=== PATIENT | female | born 1965 | race African-American/Black ===

== ENCOUNTER 2019-01-09 23:09 | Inpatient (IN) | payer OTHER ==
[~2019-01-09] VITALS: Ht 172.7 cm; Wt 136.3 kg
[2019-01-09] MEDS ORDERED: IPRA4AER IH (23:40)
[2019-01-09] MEDS ORDERED: TRUVT PO (23:41)
[2019-01-09] MEDS ORDERED: LISI-662 PO (23:41)
[2019-01-09] MEDS ORDERED: FAMO20 PO (23:41)
[2019-01-09] MEDS ORDERED: HYDR25TA PO (23:41)
[2019-01-09] MEDS ORDERED: ATAZ150 PO (23:41)
[2019-01-09] MEDS ORDERED: GABA-531 PO (23:41)
[2019-01-09] MEDS ORDERED: RITO100T PO (23:41)
[2019-01-09] MEDS ORDERED: GUAIF600 PO (23:41)
[2019-01-09] MEDS ORDERED: LORA0.5T2 PO (23:41)
[2019-01-10] MEDS ORDERED: KETOROLAC TROMETHAMINE 30 MG/ML VIAL IVP ONE
[2019-01-10 00:29] LABS: BASOPHILS % (AUTO) 0.8 % (0.0-2.0); EOSINOPHILS % (AUTO) 1.3 % (1.0-6.0); HEMATOCRIT 23.8 % (36-46); HEMOGLOBIN 7.7 g/dL (12.0-16.0); LYMPHOCYTES # (AUTO) 1.7 K/uL (1.0-4.8); MEAN CORPUSCULAR HEMOGLOBIN 27.8 pg (26.0-34.0); MEAN CORPUSCULAR HGB CONC 32.2 G/dL (31.0-37.0); MEAN CORPUSCULAR VOLUME 86 fL (80-100); MONOCYTES # (AUTO) 0.5 K/uL (0.1-1.0); MONOCYTES % (AUTO) 10.3 % (2.0-9.0); NEUTROPHILS # (AUTO) 2.4 K/uL (1.8-7.7); NEUTROPHILS % (AUTO) 50.6 % (40.0-70.0); PLATELET COUNT (AUTO) 121 K/uL (150-450); RED BLOOD CELL COUNT(AUTO) 2.76 MIL/uL (4.00-5.20); RED CELL DISTRIBUTION WIDTH 18.9 % (11.5-14.5)
[2019-01-10 00:39] LABS: CALCIUM, TOTAL 7.7 mg/dL (8.8-10.5); CREATININE 1.56 mg/dL (0.60-1.30); POTASSIUM 4.3 mmol/L (3.5-5.1)
[2019-01-10 00:40] LABS: INR 1.4 (0.9-1.1); PROTHROMBIN TIME 14.1 SEC (9.4-11.6)
[2019-01-10 01:04] LABS: ALBUMIN 1.1 g/dL (3.4-5.0); BILIRUBIN,TOTAL 1.4 mg/dL (0.1-1.0); TOTAL PROTEIN, SERUM 9.1 g/dL (6.4-8.2)
[2019-01-10] MEDS ORDERED: LEVOFLOXACIN 750 MG/D5% WATER 150 ML IV ONE (01:30)
[2019-01-10 01:31] LABS: APPEARANCE,URINE CLEAR (CLEAR); BILIRUBIN,URINE NEGATIVE (NEGATIVE); GLUCOSE, URINE (UA) NEGATIVE (NEGATIVE); KETONES,URINE NEGATIVE (NEGATIVE); LEUKOCYTE ESTERASE ,URINE NEGATIVE (NEGATIVE); NITRATE,URINE NEGATIVE (NEGATIVE); OCCULT BLOOD,URINE LARGE (NEGATIVE); PROTEIN,URINE NEGATIVE (NEGATIVE); UROBILINOGEN,URINE 0.2 mg/dL (<=1.0)
[2019-01-10 01:46] LABS: BACTERIA,URINE Rare /HPF (None Seen); SQUAMOUS EPITHELIAL CELL,UR Few /LPF (None Seen); WBC,URINE 0-2 /HPF (0-5)
[2019-01-10] MEDS ORDERED: HYDROCODONE/ACETAMINOPHEN 5-325 MG TABLET PO ONE (03:45)
[2019-01-10] MEDS ORDERED: MethylPREDNISolone SOD SUCC 125 MG/2 ML VIAL IVP ONE (03:45)
[2019-01-10] MEDS ORDERED: FUROSEMIDE 40 MG/4 ML VIAL IVP ONE (05:00)
[2019-01-10 07:02] VITALS: BP 153/97
[2019-01-10 08:11] VITALS: BP 145/71
[2019-01-10 12:23] VITALS: BP 142/60
[2019-01-10] MEDS ORDERED: ONDANSETRON HCL 4 MG/2 ML VIAL IVP PRN (12:30)
[2019-01-10] MEDS ORDERED: IPRATROPIUM BROMIDE 0.5 MG/2.5 ML NEB SOLUTION NEB PRN (12:30)
[2019-01-10] MEDS ORDERED: ALBUTEROL SULFATE 2.5 MG/0.5 ML NEB SOLUTION NEB PRN (12:30)
[2019-01-10] MEDS ORDERED: *CLINICAL-LEVOFLOXACIN IVPB DOSING CLINICAL ONE (12:30)
[2019-01-10] MEDS ORDERED: 0.9% SODIUM CHLORIDE 10 ML SYRINGE IVP PRN (12:30)
[2019-01-10] MEDS ORDERED: SODIUM CHLORIDE 0.9% 250 ML IV ONE (12:46)
[2019-01-10] MEDS: HYDROCHLOROTHIAZIDE 25 MG TABLET PO SCH (13:58)
[2019-01-10] MEDS: LEVOFLOXACIN 750 MG/D5% WATER 150 ML IV SCH (13:58)
[2019-01-10] MEDS: LORazepam 0.5 MG TABLET PO SCH ×2 (13:59→20:29)
[2019-01-10] MEDS: LISINOPRIL 20 MG TABLET PO SCH ×2 (13:59→20:29)
[2019-01-10] MEDS: GuaiFENesin SR 600 MG ER TABLET PO SCH (14:02)
[2019-01-10] MEDS: HEPARIN SODIUM,PORCINE 5,000 UNITS/ML VIAL SQ SCH (14:02)
[2019-01-10] MEDS: ALBUTEROL SULFATE 2.5 MG/0.5 ML NEB SOLUTION NEB SCH ×2 (14:08→20:07)
[2019-01-10] MEDS: IPRATROPIUM BROMIDE 0.5 MG/2.5 ML NEB SOLUTION NEB SCH ×2 (14:08→20:07)
[2019-01-10 15:39] VITALS: BP 138/70
[2019-01-10] MEDS: RITONAVIR 100 MG TABLET PO SCH (17:49)
[2019-01-10 19:18] VITALS: BP 134/73
[2019-01-10] MEDS ORDERED: [UNRECOGNIZED DRUG - CODE] PO (19:44)
[2019-01-10] MEDS: ZOLPIDEM TARTRATE 5 MG TABLET PO PRN (20:29)
[2019-01-10] MEDS: MethylPREDNISolone SOD SUCC 40 MG/ML VIAL IVP SCH (20:29)
[2019-01-10] MEDS: ACETAMINOPHEN 325 MG TABLET PO PRN (20:29)
[2019-01-10] MEDS: DOCUSATE SODIUM 100 MG CAPSULE PO SCH (20:29)
[2019-01-10 23:58] VITALS: BP 151/77
[2019-01-11] MEDS: HEPARIN SODIUM,PORCINE 5,000 UNITS/ML VIAL SQ SCH ×4 (00:56→23:18)
[2019-01-11] MEDS: GuaiFENesin SR 600 MG ER TABLET PO SCH ×4 (00:56→23:18)
[2019-01-11] MEDS: ALBUTEROL SULFATE 2.5 MG/0.5 ML NEB SOLUTION NEB SCH ×4 (02:16→19:14)
[2019-01-11] MEDS: IPRATROPIUM BROMIDE 0.5 MG/2.5 ML NEB SOLUTION NEB SCH ×4 (02:16→19:14)
[2019-01-11 04:09] VITALS: BP 130/59
[2019-01-11 05:56] LABS: BASOPHILS % (AUTO) 0.3 % (0.0-2.0); EOSINOPHILS % (AUTO) 0 % (1.0-6.0); HEMATOCRIT 23.5 % (36-46); HEMOGLOBIN 7.6 g/dL (12.0-16.0); LYMPHOCYTES # (AUTO) 0.6 K/uL (1.0-4.8); LYMPHOCYTES % (AUTO) 13.7 % (22.0-44.0); MEAN CORPUSCULAR HEMOGLOBIN 28.1 pg (26.0-34.0); MEAN CORPUSCULAR HGB CONC 32.2 G/dL (31.0-37.0); MEAN CORPUSCULAR VOLUME 87 fL (80-100); MONOCYTES # (AUTO) 0.2 K/uL (0.1-1.0); MONOCYTES % (AUTO) 4.1 % (2.0-9.0); NEUTROPHILS # (AUTO) 3.5 K/uL (1.8-7.7); NEUTROPHILS % (AUTO) 81.9 % (40.0-70.0); PLATELET COUNT (AUTO) 102 K/uL (150-450); RED BLOOD CELL COUNT(AUTO) 2.69 MIL/uL (4.00-5.20)
[2019-01-11 06:30] LABS: ANION GAP 6 mmol/L (8-16); CALCIUM, TOTAL 7.7 mg/dL (8.8-10.5); CARBON DIOXIDE 22 mmol/L (22-29); CHLORIDE 102 mmol/L (98-107); CREATININE 1.74 mg/dL (0.60-1.30); GLOMERULAR FILTR. RATE CALC 37 mL/min (>60); GLUCOSE,RANDOM 209 mg/dL (70-110); POTASSIUM 5.3 mmol/L (3.5-5.1); SODIUM SERUM 130 mmol/L (136-145); UREA NITROGEN, BLOOD 28 mg/dL (7-18)
[2019-01-11 07:09] LABS: INFLUENZA TYPE A NEGATIVE FOR TYPE A (NEGATIVE); INFLUENZA TYPE B NEGATIVE FOR TYPE B (NEGATIVE)
[2019-01-11 07:43] VITALS: BP 140/64
[2019-01-11] MEDS ORDERED: PANTOPRAZOLE SODIUM 40 MG/VIAL IVP SCH (09:00)
[2019-01-11] MEDS: MethylPREDNISolone SOD SUCC 40 MG/ML VIAL IVP SCH ×2 (09:07→20:37)
[2019-01-11] MEDS: RITONAVIR 100 MG TABLET PO SCH ×2 (09:07→17:47)
[2019-01-11] MEDS: LISINOPRIL 20 MG TABLET PO SCH ×2 (09:08→20:37)
[2019-01-11] MEDS: GABAPENTIN 300 MG CAPSULE PO SCH (09:08)
[2019-01-11] MEDS: DOCUSATE SODIUM 100 MG CAPSULE PO SCH ×2 (09:09→20:37)
[2019-01-11] MEDS: LORazepam 0.5 MG TABLET PO SCH ×2 (09:09→20:37)
[2019-01-11] MEDS: HYDROCHLOROTHIAZIDE 25 MG TABLET PO SCH (09:09)
[2019-01-11] MEDS: EMTRICITABINE/TENOFOVIR 200-300 MG TABLET PO SCH (09:10)
[2019-01-11 11:18] VITALS: BP 131/52
[2019-01-11] MEDS: ATAZANAVIR SULFATE 300 MG CAPSULE PO SCH (13:27)
[2019-01-11] MEDS ORDERED: DEXTROSE 50%-WATER 25 GM/50 ML SYRINGE IVP PRN (14:00)
[2019-01-11] MEDS ORDERED: MAGNESIUM SULFATE 2 GM/WATER 50 ML IV PRN (14:00)
[2019-01-11] MEDS ORDERED: GLUCAGON,HUMAN RECOMBINANT 1 MG VIAL IM PRN (14:00)
[2019-01-11] MEDS ORDERED: MAGNESIUM SULFATE 4 GM/WATER 100 ML IV PRN (14:00)
[2019-01-11] MEDS ORDERED: INSULIN LISPRO 100 UNITS/ML SQ PRN (14:00)
[2019-01-11 15:22] VITALS: BP 143/73
[2019-01-11] MEDS: LEVOFLOXACIN 750 MG/D5% WATER 150 ML IV SCH (15:31)
[2019-01-11] MEDS: INSULIN LISPRO 100 UNITS/ML SQ PRN ×2 (17:51→20:41)
[2019-01-11 19:58] VITALS: BP 133/75
[2019-01-11] MEDS: ACETAMINOPHEN 325 MG TABLET PO PRN (20:37)
[2019-01-11] MEDS: ZOLPIDEM TARTRATE 5 MG TABLET PO PRN (20:37)
[2019-01-12 00:07] VITALS: BP 131/75
[2019-01-12] MEDS: ALBUTEROL SULFATE 2.5 MG/0.5 ML NEB SOLUTION NEB SCH ×3 (01:20→14:00)
[2019-01-12] MEDS: IPRATROPIUM BROMIDE 0.5 MG/2.5 ML NEB SOLUTION NEB SCH ×3 (01:20→14:00)
[2019-01-12 04:33] VITALS: BP 146/63
[2019-01-12 05:10] LABS: GLUCOMETER DEV NAME(LOC) 5N.1; GLUCOSE,POINT OF CARE 232 MG/DL (70-110)
[2019-01-12 06:30] LABS: GLUCOMETER DEV NAME(LOC) 5S.1; GLUCOSE,POINT OF CARE 260 MG/DL (70-110)
[2019-01-12 06:39] LABS: CALCIUM, TOTAL 7.7 mg/dL (8.8-10.5); CREATININE 1.55 mg/dL (0.60-1.30); MAGNESIUM 1.7 mg/dL (1.80-2.40); POTASSIUM 5.4 mmol/L (3.5-5.1)
[2019-01-12] MEDS: INSULIN LISPRO 100 UNITS/ML SQ PRN ×4 (06:41→22:11)
[2019-01-12 06:43] LABS: BASOPHILS % (AUTO) 0.4 % (0.0-2.0); EOSINOPHILS % (AUTO) 0.2 % (1.0-6.0); HEMATOCRIT 22.2 % (36-46); HEMOGLOBIN 7.2 g/dL (12.0-16.0); LYMPHOCYTES # (AUTO) 0.6 K/uL (1.0-4.8); LYMPHOCYTES % (AUTO) 9.2 % (22.0-44.0); MEAN CORPUSCULAR HEMOGLOBIN 27.7 pg (26.0-34.0); MEAN CORPUSCULAR HGB CONC 32.4 G/dL (31.0-37.0); MEAN CORPUSCULAR VOLUME 86 fL (80-100); MONOCYTES # (AUTO) 0.4 K/uL (0.1-1.0); MONOCYTES % (AUTO) 7.1 % (2.0-9.0); NEUTROPHILS # (AUTO) 5.2 K/uL (1.8-7.7); NEUTROPHILS % (AUTO) 83.1 % (40.0-70.0); PLATELET COUNT (AUTO) 115 K/uL (150-450); RED CELL DISTRIBUTION WIDTH 18.9 % (11.5-14.5)
[2019-01-12 07:48] VITALS: BP 136/72
[2019-01-12] MEDS: LISINOPRIL 20 MG TABLET PO SCH ×2 (08:44→20:01)
[2019-01-12] MEDS: GABAPENTIN 300 MG CAPSULE PO SCH (08:44)
[2019-01-12] MEDS: RITONAVIR 100 MG TABLET PO SCH ×2 (08:44→17:38)
[2019-01-12] MEDS: LORazepam 0.5 MG TABLET PO SCH ×2 (08:44→20:01)
[2019-01-12] MEDS: EMTRICITABINE/TENOFOVIR 200-300 MG TABLET PO SCH (08:44)
[2019-01-12] MEDS: HYDROCHLOROTHIAZIDE 25 MG TABLET PO SCH (08:44)
[2019-01-12] MEDS: GuaiFENesin SR 600 MG ER TABLET PO SCH ×4 (08:44→23:35)
[2019-01-12] MEDS: ATAZANAVIR SULFATE 300 MG CAPSULE PO SCH (08:45)
[2019-01-12] MEDS: MethylPREDNISolone SOD SUCC 40 MG/ML VIAL IVP SCH ×2 (08:45→20:00)
[2019-01-12] MEDS: HEPARIN SODIUM,PORCINE 5,000 UNITS/ML VIAL SQ SCH ×3 (08:45→23:35)
[2019-01-12] MEDS: DOCUSATE SODIUM 100 MG CAPSULE PO SCH ×2 (08:46→20:01)
[2019-01-12] MEDS: MAGNESIUM OXIDE 400 MG TABLET PO PRN ×3 (09:04→23:32)
[2019-01-12 11:36] VITALS: BP 120/72
[2019-01-12] MEDS ORDERED: SODIUM POLYSTYRENE SULFONATE 15 GM/60 ML SUSPENSION BOTTLE PO ONE (12:00)
[2019-01-12] MEDS: SODIUM CHLORIDE 1 GM TABLET PO SCH ×2 (12:16→20:01)
[2019-01-12 13:24] LABS: GLUCOMETER DEV NAME(LOC) 5N.1; GLUCOSE,POINT OF CARE 254 MG/DL (70-110)
[2019-01-12 13:24] LABS: GLUCOMETER DEV NAME(LOC) 5N.1; GLUCOSE,POINT OF CARE 210 MG/DL (70-110)
[2019-01-12 15:33] VITALS: BP 129/73
[2019-01-12] MEDS: LEVOFLOXACIN 750 MG/D5% WATER 150 ML IV SCH (15:36)
[2019-01-12] MEDS ORDERED: OxyCODONE HCL/ACETAMINOPHEN 5-325 MG TABLET PO ONE (17:00)
[2019-01-12 19:43] VITALS: BP 128/69
[2019-01-13 00:38] VITALS: BP 141/68
[2019-01-13 00:41] LABS: GLUCOMETER DEV NAME(LOC) 5N.1; GLUCOSE,POINT OF CARE 336 MG/DL (70-110)
[2019-01-13] MEDS: ALBUTEROL SULFATE 2.5 MG/0.5 ML NEB SOLUTION NEB SCH ×4 (01:53→19:37)
[2019-01-13] MEDS: IPRATROPIUM BROMIDE 0.5 MG/2.5 ML NEB SOLUTION NEB SCH ×4 (01:53→19:37)
[2019-01-13 05:33] VITALS: BP 137/83
[2019-01-13] MEDS: INSULIN LISPRO 100 UNITS/ML SQ PRN ×4 (05:41→20:30)
[2019-01-13 05:54] LABS: GLUCOMETER DEV NAME(LOC) 5S.1; GLUCOSE,POINT OF CARE 352 MG/DL (70-110)
[2019-01-13 05:55] LABS: GLUCOMETER DEV NAME(LOC) 5S.1; GLUCOSE,POINT OF CARE 336 MG/DL (70-110)
[2019-01-13 06:00] LABS: HEMATOCRIT 23.9 % (36-46); HEMOGLOBIN 7.8 g/dL (12.0-16.0); MEAN CORPUSCULAR HEMOGLOBIN 28.3 pg (26.0-34.0); MEAN CORPUSCULAR HGB CONC 32.8 G/dL (31.0-37.0); MEAN CORPUSCULAR VOLUME 86 fL (80-100); PLATELET COUNT (AUTO) 125 K/uL (150-450); RED BLOOD CELL COUNT(AUTO) 2.77 MIL/uL (4.00-5.20); RED CELL DISTRIBUTION WIDTH 18.2 % (11.5-14.5)
[2019-01-13 06:38] LABS: CALCIUM, TOTAL 7.7 mg/dL (8.8-10.5); CREATININE 1.49 mg/dL (0.60-1.30); MAGNESIUM 1.6 mg/dL (1.80-2.40); POTASSIUM 5.2 mmol/L (3.5-5.1)
[2019-01-13 07:21] VITALS: BP 153/81
[2019-01-13 07:46] LABS: BAND NEUTROPHILS % (MANUAL) 1 % (0-5); LYMPHOCYTES % (MANUAL) 25 % (22-44); MONOCYTES % (MANUAL) 3 % (2-9); SEGMENTED NEUTROPHILS % 71 % (40-70)
[2019-01-13] MEDS: HYDROCHLOROTHIAZIDE 25 MG TABLET PO SCH (08:24)
[2019-01-13] MEDS: RITONAVIR 100 MG TABLET PO SCH ×2 (08:24→16:33)
[2019-01-13] MEDS: LORazepam 0.5 MG TABLET PO SCH ×2 (08:24→20:22)
[2019-01-13] MEDS: GuaiFENesin SR 600 MG ER TABLET PO SCH ×3 (08:24→23:21)
[2019-01-13] MEDS: EMTRICITABINE/TENOFOVIR 200-300 MG TABLET PO SCH (08:25)
[2019-01-13] MEDS: GABAPENTIN 300 MG CAPSULE PO SCH (08:25)
[2019-01-13] MEDS: SODIUM CHLORIDE 1 GM TABLET PO SCH ×3 (08:25→20:21)
[2019-01-13] MEDS: LISINOPRIL 20 MG TABLET PO SCH ×2 (08:25→20:22)
[2019-01-13] MEDS: DOCUSATE SODIUM 100 MG CAPSULE PO SCH ×2 (08:25→20:22)
[2019-01-13] MEDS: MethylPREDNISolone SOD SUCC 40 MG/ML VIAL IVP SCH ×2 (08:25→20:21)
[2019-01-13] MEDS: HEPARIN SODIUM,PORCINE 5,000 UNITS/ML VIAL SQ SCH ×3 (08:25→23:21)
[2019-01-13] MEDS: ATAZANAVIR SULFATE 300 MG CAPSULE PO SCH (08:27)
[2019-01-13 11:59] VITALS: BP 147/89
[2019-01-13] MEDS ORDERED: DEXTROSE 50%-WATER 25 GM/50 ML SYRINGE IVP PRN (12:30)
[2019-01-13 15:18] VITALS: BP 126/72
[2019-01-13] MEDS: LEVOFLOXACIN 750 MG/D5% WATER 150 ML IV SCH (16:42)
[2019-01-13 17:20] LABS: GLUCOMETER DEV NAME(LOC) 5S.1; GLUCOSE,POINT OF CARE 366 MG/DL (70-110)
[2019-01-13] MEDS ORDERED: LORazepam 2 MG/ML VIAL IVP ONE (18:45)
[2019-01-13 19:24] LABS: GLUCOMETER DEV NAME(LOC) 5N.1; GLUCOSE,POINT OF CARE 342 MG/DL (70-110)
[2019-01-13 19:28] VITALS: BP 140/81
[2019-01-13 22:14] LABS: GLUCOMETER DEV NAME(LOC) 5S.1; GLUCOSE,POINT OF CARE 329 MG/DL (70-110)
[2019-01-14] VITALS (7 sets, daily range): BP systolic 127–148; BP diastolic 62–93
[2019-01-14] MEDS: IPRATROPIUM BROMIDE 0.5 MG/2.5 ML NEB SOLUTION NEB SCH ×4 (02:00→21:05)
[2019-01-14] MEDS: ALBUTEROL SULFATE 2.5 MG/0.5 ML NEB SOLUTION NEB SCH ×4 (02:00→21:05)
[2019-01-14 06:34] LABS: BASOPHILS % (AUTO) 0.3 % (0.0-2.0); EOSINOPHILS % (AUTO) 0 % (1.0-6.0); HEMATOCRIT 24.2 % (36-46); HEMOGLOBIN 7.8 g/dL (12.0-16.0); LYMPHOCYTES # (AUTO) 0.4 K/uL (1.0-4.8); LYMPHOCYTES % (AUTO) 7.6 % (22.0-44.0); MEAN CORPUSCULAR HEMOGLOBIN 28.2 pg (26.0-34.0); MEAN CORPUSCULAR HGB CONC 32.4 G/dL (31.0-37.0); MEAN CORPUSCULAR VOLUME 87 fL (80-100); MONOCYTES # (AUTO) 0.6 K/uL (0.1-1.0); MONOCYTES % (AUTO) 11.3 % (2.0-9.0); NEUTROPHILS % (AUTO) 80.8 % (40.0-70.0); PLATELET COUNT (AUTO) 119 K/uL (150-450); RED BLOOD CELL COUNT(AUTO) 2.78 MIL/uL (4.00-5.20); RED CELL DISTRIBUTION WIDTH 18.1 % (11.5-14.5)
[2019-01-14 06:55] LABS: CALCIUM, TOTAL 7.9 mg/dL (8.8-10.5); CREATININE 1.49 mg/dL (0.60-1.30); MAGNESIUM 1.5 mg/dL (1.80-2.40); PHOSPHORUS 3.6 mg/dL (2.5-4.9); POTASSIUM 5.2 mmol/L (3.5-5.1)
[2019-01-14] MEDS: INSULIN LISPRO 100 UNITS/ML SQ PRN ×3 (06:59→20:45)
[2019-01-14] MEDS ORDERED: MAGNESIUM SULFATE 2 GM in DEXTROSE 5%-WATER 50 ML IV ONE (08:00)
[2019-01-14] MEDS: EMTRICITABINE/TENOFOVIR 200-300 MG TABLET PO SCH (08:45)
[2019-01-14] MEDS: RITONAVIR 100 MG TABLET PO SCH ×2 (08:45→17:07)
[2019-01-14] MEDS: LORazepam 0.5 MG TABLET PO SCH ×2 (08:46→20:43)
[2019-01-14] MEDS: HYDROCHLOROTHIAZIDE 25 MG TABLET PO SCH (08:46)
[2019-01-14] MEDS: DOCUSATE SODIUM 100 MG CAPSULE PO SCH ×2 (08:46→20:43)
[2019-01-14] MEDS: HEPARIN SODIUM,PORCINE 5,000 UNITS/ML VIAL SQ SCH ×3 (08:46→23:59)
[2019-01-14] MEDS: GuaiFENesin SR 600 MG ER TABLET PO SCH ×2 (08:46→17:07)
[2019-01-14] MEDS: GABAPENTIN 300 MG CAPSULE PO SCH (08:46)
[2019-01-14] MEDS: LISINOPRIL 20 MG TABLET PO SCH ×2 (08:46→20:43)
[2019-01-14] MEDS: SODIUM CHLORIDE 1 GM TABLET PO SCH ×3 (08:46→20:43)
[2019-01-14] MEDS: ATAZANAVIR SULFATE 300 MG CAPSULE PO SCH (08:47)
[2019-01-14] MEDS: MethylPREDNISolone SOD SUCC 40 MG/ML VIAL IVP SCH (08:47)
[2019-01-14] MEDS ORDERED: LORazepam 2 MG/ML VIAL IVP ONE (10:45)
[2019-01-14] MEDS ORDERED: INSULIN LISPRO 100 UNITS/ML SQ ONE ×2 (11:15)
[2019-01-14] MEDS: LEVOFLOXACIN 750 MG/D5% WATER 150 ML IV SCH (17:07)
[2019-01-14] MEDS: ZOLPIDEM TARTRATE 5 MG TABLET PO PRN (20:43)
[2019-01-14] MEDS: ACETAMINOPHEN 325 MG TABLET PO PRN (20:44)
[2019-01-15 00:10] VITALS: BP 140/84
[2019-01-15] MEDS: ALBUTEROL SULFATE 2.5 MG/0.5 ML NEB SOLUTION NEB SCH ×2 (02:28→15:09)
[2019-01-15] MEDS: IPRATROPIUM BROMIDE 0.5 MG/2.5 ML NEB SOLUTION NEB SCH ×2 (02:28→15:09)
[2019-01-15 04:55] VITALS: BP 151/72
[2019-01-15 06:24] LABS: GLUCOMETER DEV NAME(LOC) 5S.2; GLUCOSE,POINT OF CARE 317 MG/DL (70-110)
[2019-01-15 06:25] LABS: GLUCOMETER DEV NAME(LOC) 5S.2; GLUCOSE,POINT OF CARE > 600 MG/DL (70-110)
[2019-01-15 06:25] LABS: GLUCOMETER DEV NAME(LOC) 5S.2; GLUCOSE,POINT OF CARE 370 MG/DL (70-110)
[2019-01-15 06:25] LABS: GLUCOMETER DEV NAME(LOC) 5S.2; GLUCOSE,POINT OF CARE 417 MG/DL (70-110)
[2019-01-15 06:27] LABS: HEMATOCRIT 25.2 % (36-46); HEMOGLOBIN 8.1 g/dL (12.0-16.0); MEAN CORPUSCULAR VOLUME 88 fL (80-100); PLATELET COUNT (AUTO) 127 K/uL (150-450); RED BLOOD CELL COUNT(AUTO) 2.88 MIL/uL (4.00-5.20); RED CELL DISTRIBUTION WIDTH 18.1 % (11.5-14.5)
[2019-01-15] MEDS: INSULIN LISPRO 100 UNITS/ML SQ PRN ×2 (06:39→11:52)
[2019-01-15 07:21] LABS: CREATININE 1.51 mg/dL (0.60-1.30); MAGNESIUM 1.8 mg/dL (1.80-2.40); POTASSIUM 5.1 mmol/L (3.5-5.1); THYROID STIMULATING HORMONE 2.09 uIU/mL (0.36-3.74)
[2019-01-15 07:33] VITALS: BP 136/71
[2019-01-15] MEDS: EMTRICITABINE/TENOFOVIR 200-300 MG TABLET PO SCH (08:34)
[2019-01-15] MEDS: RITONAVIR 100 MG TABLET PO SCH (08:34)
[2019-01-15] MEDS: GABAPENTIN 300 MG CAPSULE PO SCH (08:35)
[2019-01-15] MEDS: LORazepam 0.5 MG TABLET PO SCH (08:35)
[2019-01-15] MEDS: HYDROCHLOROTHIAZIDE 25 MG TABLET PO SCH (08:35)
[2019-01-15] MEDS: GuaiFENesin SR 600 MG ER TABLET PO SCH ×2 (08:35)
[2019-01-15] MEDS: SODIUM CHLORIDE 1 GM TABLET PO SCH (08:35)
[2019-01-15] MEDS: LISINOPRIL 20 MG TABLET PO SCH (08:35)
[2019-01-15] MEDS: DOCUSATE SODIUM 100 MG CAPSULE PO SCH (08:35)
[2019-01-15] MEDS: HEPARIN SODIUM,PORCINE 5,000 UNITS/ML VIAL SQ SCH (08:36)
[2019-01-15] MEDS: ATAZANAVIR SULFATE 300 MG CAPSULE PO SCH (08:36)
[2019-01-15 08:41] LABS: BAND NEUTROPHILS % (MANUAL) 1 % (0-5); LYMPHOCYTES % (MANUAL) 25 % (22-44); MONOCYTES % (MANUAL) 6 % (2-9); SEGMENTED NEUTROPHILS % 68 % (40-70)
[2019-01-15 08:58] VITALS: BP 139/74
[2019-01-15] MEDS ORDERED: PredniSONE 20 MG TABLET PO SCH (09:00)
[2019-01-15] MEDS ORDERED: INSULIN GLARGINE,HUM.REC.ANLOG 100 UNITS/ML SQ SCH (09:00)
[2019-01-15 11:51] VITALS: BP 138/70
[2019-01-15] MEDS ORDERED: SODIUM CHLORIDE 1 GM TABLET PO SCH (15:00)
[2019-01-15 15:57] VITALS: BP 146/82
[2019-01-15] MEDS ORDERED: INSLAN SQ (17:10)
[2019-01-15] MEDS ORDERED: IPRNEB IH (17:11)
[2019-01-15] MEDS ORDERED: LORA-192 PO (17:12)
[2019-01-15] MEDS ORDERED: NACL1 PO (17:13)
[2019-01-15] MEDS ORDERED: MetFORMIN HCL 500 MG TABLET PO SCH (18:00)
[2019-01-15 21:10] LABS: GLUCOMETER DEV NAME(LOC) 5N.1; GLUCOSE,POINT OF CARE 308 MG/DL (70-110)
[2019-01-16 04:49] LABS: GLUCOMETER DEV NAME(LOC) 5S.1; GLUCOSE,POINT OF CARE 455 MG/DL (70-110)
[2019-01-16 11:07] LABS: LEGIONELLA PNEUMO AG URINE Negative (Negative); ORGANISM ID Not indicated.; S PNEUMO SOURCE Urine; STREP PNEUMONIAE AG URINE Negative (Negative); STREP.PNEUMO BODY FLUID CULT. Not Indicated
[2019-01-17] MEDS ORDERED: EMTRICITABINE/TENOFOVIR 200-300 MG TABLET PO SCH (09:00)
== END 2019-01-15 17:20 | DRG 890 ==
LOC: EMS 23:10 → 5S 01-10 05:04
PROVIDERS: ADMIT Internal Medicine; ATTEND Internal Medicine
DX: J18.9 Pneumonia, unspecified organism (principal); B20 Human immunodeficiency virus [HIV] disease; N17.9 Acute kidney failure, unspecified; K74.60 Unspecified cirrhosis of liver; I11.0 Hypertensive heart disease with heart failure; I50.9 Heart failure, unspecified; E83.42 Hypomagnesemia; E87.1 Hypo-osmolality and hyponatremia; R16.0 Hepatomegaly, not elsewhere classified; J44.9 Chronic obstructive pulmonary disease, unspecified; D64.9 Anemia, unspecified; B19.20 Unspecified viral hepatitis C without hepatic coma; E87.5 Hyperkalemia; F15.10 Other stimulant abuse, uncomplicated; F17.210 Nicotine dependence, cigarettes, uncomplicated; J45.909 Unspecified asthma, uncomplicated; R09.02 Hypoxemia; Z59.0 Homelessness; Z79.899 Other long term (current) drug therapy; Z82.49 Family history of ischemic heart disease and other diseases of the circulatory system; Z91.19 Patient's noncompliance with other medical treatment and regimen; Z88.8 Allergy status to other drugs, medicaments and biological substances
CPT/HCPCS: 51702; 71250; 74181; 80074; 82105; 82533; 83036; 83605; 83735; 83935; 84100; 84145; 84300; 84443; 86361; 86738; 87040; 87081; 87205; 87449; 87804; 87899; 93005; 93306; 94640; 96365; 96375; 97116; 97162; 97530; G0378; J1644; J1815; J1885; J1940; J1956; J2060; J2405; J2920; J2930; J3475; J7050; J7060

== ENCOUNTER 2019-01-18 02:34 | Inpatient (IN) | payer OTHER ==
[~2019-01-18] VITALS: Ht 172.7 cm; Wt 133.0 kg
[~2019-01-18 02:34] MED LIST: FAMO20 PO; GABA-531 PO; GUAIF600 PO; HYDR25TA PO; INSLAN SQ; IPRA4AER IH; IPRNEB IH; LISI-662 PO; LORA-192 PO; LORA0.5T2 PO; NACL1 PO; RITO100T PO; TRUVT PO; [UNRECOGNIZED DRUG - CODE] PO
[2019-01-18] MEDS ORDERED: VITAD1000 PO (03:06)
[2019-01-18] MEDS ORDERED: PRED20 PO (03:06)
[2019-01-18 03:39] LABS: GLUCOSE,POINT OF CARE 228 MG/DL (70-110)
[2019-01-18 03:43] LABS: HEMATOCRIT 28.3 % (36-46); HEMOGLOBIN 9.4 g/dL (12.0-16.0); MEAN CORPUSCULAR HEMOGLOBIN 28.9 pg (26.0-34.0); MEAN CORPUSCULAR HGB CONC 33.1 G/dL (31.0-37.0); MEAN CORPUSCULAR VOLUME 88 fL (80-100); PLATELET COUNT (AUTO) 129 K/uL (150-450); RED BLOOD CELL COUNT(AUTO) 3.24 MIL/uL (4.00-5.20); RED CELL DISTRIBUTION WIDTH 18.4 % (11.5-14.5)
[2019-01-18 03:44] LABS: CALCIUM, TOTAL 8.1 mg/dL (8.8-10.5); CREATININE 1.43 mg/dL (0.60-1.30); INR 1.3 (0.9-1.1); POTASSIUM 4.8 mmol/L (3.5-5.1); PROTHROMBIN TIME 13.1 SEC (9.4-11.6)
[2019-01-18 04:05] LABS: ALBUMIN 1.4 g/dL (3.4-5.0); BILIRUBIN,TOTAL 1.9 mg/dL (0.1-1.0); TOTAL PROTEIN, SERUM 8.1 g/dL (6.4-8.2)
[2019-01-18 04:07] LABS: APPEARANCE,URINE CLEAR (CLEAR); BILIRUBIN,URINE NEGATIVE (NEGATIVE); GLUCOSE, URINE (UA) NEGATIVE (NEGATIVE); KETONES,URINE NEGATIVE (NEGATIVE); LEUKOCYTE ESTERASE ,URINE SMALL (NEGATIVE); NITRATE,URINE NEGATIVE (NEGATIVE); OCCULT BLOOD,URINE LARGE (NEGATIVE); PH,URINE 6.5 (5.0-8.0); PROTEIN,URINE POS 1+ (NEGATIVE)
[2019-01-18 04:15] LABS: BAND NEUTROPHILS % (MANUAL) 3 % (0-5); EOSINOPHILS % (MANUAL) 1 % (1-6); LYMPHOCYTES % (MANUAL) 10 % (22-44); MONOCYTES % (MANUAL) 10 % (2-9); SEGMENTED NEUTROPHILS % 76 % (40-70)
[2019-01-18 04:21] LABS: RBC,URINE >100 /HPF (0-2)
[2019-01-18 04:23] LABS: BACTERIA,URINE Rare /HPF (None Seen); SQUAMOUS EPITHELIAL CELL,UR Rare /LPF (None Seen)
[2019-01-18] MEDS ORDERED: SODIUM CHLORIDE 0.9% 100 ML ONE (04:31)
[2019-01-18] MEDS ORDERED: IOVERSOL 350 MG/ML 150 ML VIAL ONE (04:31)
[2019-01-18] MEDS ORDERED: ACETAMINOPHEN 325 MG TABLET PO PRN (05:15)
[2019-01-18] MEDS ORDERED: ONDANSETRON HCL 4 MG/2 ML VIAL IVP PRN ×2 (05:15→06:00)
[2019-01-18] MEDS ORDERED: 0.9% SODIUM CHLORIDE 10 ML SYRINGE IVP PRN ×2 (05:15→06:00)
[2019-01-18] MEDS ORDERED: INSULIN LISPRO 100 UNITS/ML SQ PRN (06:00)
[2019-01-18] MEDS ORDERED: GLUCAGON,HUMAN RECOMBINANT 1 MG VIAL IM PRN (06:00)
[2019-01-18] MEDS ORDERED: DEXTROSE 50%-WATER 25 GM/50 ML SYG IVP PRN (06:15)
[2019-01-18 06:21] VITALS: BP 150/87
[2019-01-18 07:39] VITALS: BP 116/59
[2019-01-18] MEDS: ALBUTEROL SULFATE 2.5 MG/0.5 ML NEB SOLUTION NEB SCH ×3 (08:31→20:28)
[2019-01-18] MEDS: IPRATROPIUM BROMIDE 0.5 MG/2.5 ML NEB SOLUTION NEB SCH ×3 (08:31→20:28)
[2019-01-18] MEDS: INSULIN GLARGINE,HUM.REC.ANLOG 100 UNITS/ML SQ SCH ×2 (08:53→20:24)
[2019-01-18] MEDS: PANTOPRAZOLE SODIUM 40 MG/VIAL IVP SCH (08:55)
[2019-01-18] MEDS: LORazepam 0.5 MG TABLET PO SCH ×2 (08:55→20:20)
[2019-01-18] MEDS: MethylPREDNISolone SOD SUCC 125 MG/2 ML VIAL IVP SCH ×2 (08:55→20:20)
[2019-01-18] MEDS: SODIUM CHLORIDE 1 GM TABLET PO SCH ×2 (08:56→20:20)
[2019-01-18] MEDS: DOCUSATE SODIUM 100 MG CAPSULE PO SCH ×2 (08:56→20:20)
[2019-01-18] MEDS: HEPARIN SODIUM,PORCINE 5,000 UNITS/ML VIAL SQ SCH ×3 (08:56→23:40)
[2019-01-18] MEDS: LISINOPRIL 20 MG TABLET PO SCH ×2 (08:57→20:20)
[2019-01-18] MEDS: CHOLECALCIFEROL (VIT D3) 1,000 UNITS TABLET PO SCH (08:57)
[2019-01-18] MEDS: RITONAVIR 100 MG TABLET PO SCH ×2 (08:57→17:45)
[2019-01-18] MEDS: EMTRICITABINE/TENOFOVIR 200-300 MG TABLET PO SCH (08:58)
[2019-01-18] MEDS: ATAZANAVIR SULFATE 300 MG CAPSULE PO SCH (08:58)
[2019-01-18] MEDS ORDERED: LORazepam 1 MG TABLET PO SCH (09:00)
[2019-01-18] MEDS ORDERED: PredniSONE 20 MG TABLET PO SCH (09:00)
[2019-01-18] MEDS: GABAPENTIN 300 MG CAPSULE PO SCH (09:02)
[2019-01-18 09:19] LABS: GLUCOMETER DEV NAME(LOC) 5S.1; GLUCOSE,POINT OF CARE 216 MG/DL (70-110)
[2019-01-18 11:03] VITALS: BP 121/60
[2019-01-18] MEDS: INSULIN LISPRO 100 UNITS/ML SQ PRN ×3 (11:48→20:25)
[2019-01-18] MEDS ORDERED: RACEPINEPHRINE HCL 2.25% 0.5 ML NEB SOLUTION NEB ONE (14:15)
[2019-01-18 15:36] VITALS: BP 157/95
[2019-01-18] MEDS ORDERED: SODIUM CHLORIDE 0.9% 250 ML IV ONE (16:09)
[2019-01-18] MEDS: MetroNIDAZOLE 500 MG TABLET PO SCH ×2 (16:14→23:39)
[2019-01-18] MEDS: CefTRIAXone SODIUM 2 GM in DEXTROSE 5%-WATER 50 ML IV SCH (16:14)
[2019-01-18 16:18] LABS: SOURCE, BLOOD GAS ARTERIAL; TEMPERATURE, FAHRENHEIT, BG 98.6 FAHREN (96.0-98.6)
[2019-01-18 16:24] LABS: ABG BASE EXCESS 1.2 mmol/L (-2.0-3.0); ABG CARBOXYHEMOGLOBIN 1.4 % (0.0-1.5); ABG HCO3 25.8 mmol/L (22.0-26.0); ABG METHEMOGLOBIN 0.3 % (0.0-1.5); ABG OXYGEN CONTENT 13.6 mL/dL (15.0-23.0); ABG OXYGEN SATURATION 99.2 % (95.0-98.0); ABG OXYHEMOGLOBIN 97.5 % (94.0-100.0); ABG PCO2 33 mmHg (35-45); ABG PH 7.488 (7.35-7.450); ABG TOTAL HEMOGLOBIN 9.7 G/dL (12.0-18.0); PO2, ARTERIAL BG 131.5 mmHg (84.0-92.0)
[2019-01-18 16:25] LABS: O2 DEVICE,BLOOD GAS CAN (ROOM AIR); SITE, BLOOD GAS RT RADIAL
[2019-01-18] MEDS: AZITHROMYCIN 500 MG/NS 250 ML IV SCH (17:08)
[2019-01-18 19:38] VITALS: BP 154/76
[2019-01-19 00:29] VITALS: BP 138/62
[2019-01-19] MEDS: ALBUTEROL SULFATE 2.5 MG/0.5 ML NEB SOLUTION NEB SCH ×4 (02:00→20:00)
[2019-01-19] MEDS: IPRATROPIUM BROMIDE 0.5 MG/2.5 ML NEB SOLUTION NEB SCH ×4 (02:00→20:00)
[2019-01-19 05:26] VITALS: BP 158/80
[2019-01-19] MEDS: HEPARIN SODIUM,PORCINE 5,000 UNITS/ML VIAL SQ SCH ×3 (08:00→16:00)
[2019-01-19 08:02] VITALS: BP 186/89
[2019-01-19] MEDS: LISINOPRIL 20 MG TABLET PO SCH ×2 (08:31→21:31)
[2019-01-19] MEDS: PANTOPRAZOLE SODIUM 40 MG/VIAL IVP SCH (08:31)
[2019-01-19] MEDS: MethylPREDNISolone SOD SUCC 125 MG/2 ML VIAL IVP SCH ×2 (08:31→21:00)
[2019-01-19 08:55] LABS: GLUCOMETER DEV NAME(LOC) 5S.1; GLUCOSE,POINT OF CARE 326 MG/DL (70-110)
[2019-01-19 11:26] VITALS: BP 154/81
[2019-01-19 11:30] LABS: GLUCOMETER DEV NAME(LOC) 5S.2; GLUCOSE,POINT OF CARE 348 MG/DL (70-110)
[2019-01-19 11:30] LABS: GLUCOMETER DEV NAME(LOC) 5S.2; GLUCOSE,POINT OF CARE 343 MG/DL (70-110)
[2019-01-19] MEDS: DOCUSATE SODIUM 100 MG CAPSULE PO SCH ×2 (11:38→21:31)
[2019-01-19] MEDS: SODIUM CHLORIDE 1 GM TABLET PO SCH ×2 (11:38→21:31)
[2019-01-19] MEDS: LORazepam 0.5 MG TABLET PO SCH ×2 (11:39→21:31)
[2019-01-19] MEDS: CHOLECALCIFEROL (VIT D3) 1,000 UNITS TABLET PO SCH (11:39)
[2019-01-19] MEDS: RITONAVIR 100 MG TABLET PO SCH ×2 (11:39→17:02)
[2019-01-19] MEDS: MetroNIDAZOLE 500 MG TABLET PO SCH ×2 (11:39→17:02)
[2019-01-19] MEDS: GABAPENTIN 300 MG CAPSULE PO SCH (11:39)
[2019-01-19] MEDS: ATAZANAVIR SULFATE 300 MG CAPSULE PO SCH (11:40)
[2019-01-19] MEDS: EMTRICITABINE/TENOFOVIR 200-300 MG TABLET PO SCH (11:41)
[2019-01-19] MEDS: INSULIN GLARGINE,HUM.REC.ANLOG 100 UNITS/ML SQ SCH ×2 (11:42→21:36)
[2019-01-19 14:49] LABS: GLUCOMETER DEV NAME(LOC) 5N.1; GLUCOSE,POINT OF CARE 273 MG/DL (70-110)
[2019-01-19 14:54] LABS: GLUCOMETER DEV NAME(LOC) 5N.1; GLUCOSE,POINT OF CARE 281 MG/DL (70-110)
[2019-01-19 15:46] VITALS: BP 128/62
[2019-01-19] MEDS: CefTRIAXone SODIUM 2 GM in DEXTROSE 5%-WATER 50 ML IV SCH (17:02)
[2019-01-19] MEDS: AZITHROMYCIN 500 MG/NS 250 ML IV SCH (18:08)
[2019-01-19 18:25] LABS: GLUCOMETER DEV NAME(LOC) 5N.1; GLUCOSE,POINT OF CARE 418 MG/DL (70-110)
[2019-01-19 20:39] VITALS: BP 157/59
[2019-01-19] MEDS ORDERED: INSULIN LISPRO 100 UNITS/ML SQ ONE (21:30)
[2019-01-19] MEDS ORDERED: DEXTROSE 50%-WATER 25 GM/50 ML SYRINGE IVP PRN (21:30)
[2019-01-20] MEDS: MetroNIDAZOLE 500 MG TABLET PO SCH ×3 (00:53→15:50)
[2019-01-20] MEDS: ALBUTEROL SULFATE 2.5 MG/0.5 ML NEB SOLUTION NEB SCH ×4 (02:00→19:53)
[2019-01-20] MEDS: IPRATROPIUM BROMIDE 0.5 MG/2.5 ML NEB SOLUTION NEB SCH ×4 (02:00→19:52)
[2019-01-20] MEDS: ALBUTEROL SULFATE 2.5 MG/0.5 ML NEB SOLUTION NEB PRN (03:59)
[2019-01-20] MEDS: IPRATROPIUM BROMIDE 0.5 MG/2.5 ML NEB SOLUTION NEB PRN (03:59)
[2019-01-20 04:02] VITALS: BP 152/84
[2019-01-20] MEDS: INSULIN LISPRO 100 UNITS/ML SQ PRN ×4 (05:44→20:15)
[2019-01-20 06:20] LABS: ALBUMIN 1.3 g/dL (3.4-5.0); BILIRUBIN,TOTAL 1.5 mg/dL (0.1-1.0); CALCIUM, TOTAL 8.1 mg/dL (8.8-10.5); CREATININE 1.32 mg/dL (0.60-1.30); POTASSIUM 5.3 mmol/L (3.5-5.1); TOTAL PROTEIN, SERUM 7.4 g/dL (6.4-8.2)
[2019-01-20 06:58] LABS: HEMATOCRIT 26.1 % (36-46); HEMOGLOBIN 8.3 g/dL (12.0-16.0); MEAN CORPUSCULAR HEMOGLOBIN 28.4 pg (26.0-34.0); MEAN CORPUSCULAR HGB CONC 31.9 G/dL (31.0-37.0); MEAN CORPUSCULAR VOLUME 89 fL (80-100); RED BLOOD CELL COUNT(AUTO) 2.94 MIL/uL (4.00-5.20); RED CELL DISTRIBUTION WIDTH 18.5 % (11.5-14.5)
[2019-01-20 06:59] LABS: PLATELET COUNT (AUTO) 96 K/uL (150-450)
[2019-01-20 07:45] LABS: GLUCOMETER DEV NAME(LOC) 5S.2; GLUCOSE,POINT OF CARE 397 MG/DL (70-110)
[2019-01-20 08:15] VITALS: BP 143/90
[2019-01-20 08:20] LABS: BAND NEUTROPHILS % (MANUAL) 2 % (0-5); LYMPHOCYTES % (MANUAL) 11 % (22-44); MONOCYTES % (MANUAL) 12 % (2-9); SEGMENTED NEUTROPHILS % 75 % (40-70)
[2019-01-20] MEDS: LISINOPRIL 20 MG TABLET PO SCH ×2 (09:19→20:13)
[2019-01-20] MEDS: PANTOPRAZOLE SODIUM 40 MG/VIAL IVP SCH (09:19)
[2019-01-20] MEDS: GABAPENTIN 300 MG CAPSULE PO SCH (09:19)
[2019-01-20] MEDS: CHOLECALCIFEROL (VIT D3) 1,000 UNITS TABLET PO SCH (09:19)
[2019-01-20] MEDS: MethylPREDNISolone SOD SUCC 125 MG/2 ML VIAL IVP SCH (09:19)
[2019-01-20] MEDS: DOCUSATE SODIUM 100 MG CAPSULE PO SCH ×2 (09:19→20:13)
[2019-01-20] MEDS: LORazepam 0.5 MG TABLET PO SCH ×2 (09:20→20:13)
[2019-01-20] MEDS: AmLODIPine BESYLATE 10 MG TABLET PO SCH (09:20)
[2019-01-20] MEDS: RITONAVIR 100 MG TABLET PO SCH ×2 (09:20→17:46)
[2019-01-20] MEDS: EMTRICITABINE/TENOFOVIR 200-300 MG TABLET PO SCH (09:20)
[2019-01-20] MEDS: HEPARIN SODIUM,PORCINE 5,000 UNITS/ML VIAL SQ SCH ×3 (09:20→15:51)
[2019-01-20] MEDS: SODIUM CHLORIDE 1 GM TABLET PO SCH ×2 (09:20→20:13)
[2019-01-20] MEDS: ATAZANAVIR SULFATE 300 MG CAPSULE PO SCH (09:20)
[2019-01-20] MEDS: INSULIN GLARGINE,HUM.REC.ANLOG 100 UNITS/ML SQ SCH ×2 (09:35→20:14)
[2019-01-20 11:58] VITALS: BP 141/76
[2019-01-20 14:43] LABS: HIV 1-2 SCREEN 4TH GEN W/RFLX Reactive (Non Reactive); HIV INTERPRETATION HIV-1 Positive; HIV-1 ANTIBODY(MULTISPOT) Positive (Negative); HIV-2 ANTIBODY(MULTISPOT) Negative (Negative)
[2019-01-20] MEDS: CefTRIAXone SODIUM 2 GM in DEXTROSE 5%-WATER 50 ML IV SCH (15:50)
[2019-01-20] MEDS: DiphenhydrAMINE HCL 25 MG CAPSULE PO PRN (15:51)
[2019-01-20] MEDS: ACETAMINOPHEN 325 MG TABLET PO PRN (15:51)
[2019-01-20 16:14] VITALS: BP 150/79
[2019-01-20] MEDS: AZITHROMYCIN 500 MG/NS 250 ML IV SCH (17:41)
[2019-01-20 19:42] VITALS: BP 151/81
[2019-01-20] MEDS: ZOLPIDEM TARTRATE 5 MG TABLET PO PRN (20:13)
[2019-01-20 23:37] LABS: GLUCOMETER DEV NAME(LOC) 5S.2; GLUCOSE,POINT OF CARE 303 MG/DL (70-110)
[2019-01-20 23:37] LABS: GLUCOMETER DEV NAME(LOC) 5S.2; GLUCOSE,POINT OF CARE 353 MG/DL (70-110)
[2019-01-21] VITALS (7 sets, daily range): BP systolic 126–145; BP diastolic 58–90
[2019-01-21] MEDS: MetroNIDAZOLE 500 MG TABLET PO SCH ×3 (00:12→17:01)
[2019-01-21] MEDS: HEPARIN SODIUM,PORCINE 5,000 UNITS/ML VIAL SQ SCH ×3 (00:12→17:00)
[2019-01-21] MEDS: IPRATROPIUM BROMIDE 0.5 MG/2.5 ML NEB SOLUTION NEB SCH ×4 (02:17→20:01)
[2019-01-21] MEDS: ALBUTEROL SULFATE 2.5 MG/0.5 ML NEB SOLUTION NEB SCH ×4 (02:17→20:01)
[2019-01-21] MEDS: INSULIN LISPRO 100 UNITS/ML SQ PRN ×4 (05:36→20:10)
[2019-01-21 06:35] LABS: GLUCOMETER DEV NAME(LOC) 5N.1; GLUCOSE,POINT OF CARE 477 MG/DL (70-110)
[2019-01-21 06:36] LABS: GLUCOMETER DEV NAME(LOC) 5N.1; GLUCOSE,POINT OF CARE 330 MG/DL (70-110)
[2019-01-21 06:36] LABS: GLUCOMETER DEV NAME(LOC) 5N.1; GLUCOSE,POINT OF CARE 373 MG/DL (70-110)
[2019-01-21] MEDS: INSULIN GLARGINE,HUM.REC.ANLOG 100 UNITS/ML SQ SCH ×2 (09:00→20:09)
[2019-01-21] MEDS: PANTOPRAZOLE SODIUM 40 MG/VIAL IVP SCH (09:00)
[2019-01-21] MEDS: DiphenhydrAMINE HCL 25 MG CAPSULE PO PRN ×2 (09:41→20:06)
[2019-01-21] MEDS: EMTRICITABINE/TENOFOVIR 200-300 MG TABLET PO SCH (09:41)
[2019-01-21] MEDS: RITONAVIR 100 MG TABLET PO SCH ×2 (09:41→17:09)
[2019-01-21] MEDS: GABAPENTIN 300 MG CAPSULE PO SCH (09:41)
[2019-01-21] MEDS: AmLODIPine BESYLATE 10 MG TABLET PO SCH (09:41)
[2019-01-21] MEDS: LORazepam 0.5 MG TABLET PO SCH ×2 (09:41→20:06)
[2019-01-21] MEDS: ATAZANAVIR SULFATE 300 MG CAPSULE PO SCH (09:41)
[2019-01-21] MEDS: CHOLECALCIFEROL (VIT D3) 1,000 UNITS TABLET PO SCH (09:42)
[2019-01-21] MEDS: LISINOPRIL 20 MG TABLET PO SCH ×2 (09:42→20:06)
[2019-01-21] MEDS: SODIUM CHLORIDE 1 GM TABLET PO SCH ×2 (09:42→20:06)
[2019-01-21] MEDS: ACETAMINOPHEN 325 MG TABLET PO PRN (09:42)
[2019-01-21] MEDS: DOCUSATE SODIUM 100 MG CAPSULE PO SCH ×2 (09:42→20:06)
[2019-01-21] MEDS: CefTRIAXone SODIUM 2 GM in DEXTROSE 5%-WATER 50 ML IV SCH (17:00)
[2019-01-21 18:04] LABS: GLUCOMETER DEV NAME(LOC) 5S.1; GLUCOSE,POINT OF CARE 262 MG/DL (70-110)
[2019-01-21] MEDS: AZITHROMYCIN 500 MG/NS 250 ML IV SCH (18:13)
[2019-01-22] MEDS: MetroNIDAZOLE 500 MG TABLET PO SCH ×3 (00:16→16:57)
[2019-01-22] MEDS: ALBUTEROL SULFATE 2.5 MG/0.5 ML NEB SOLUTION NEB SCH ×4 (02:30→20:57)
[2019-01-22] MEDS: IPRATROPIUM BROMIDE 0.5 MG/2.5 ML NEB SOLUTION NEB SCH ×4 (02:30→20:57)
[2019-01-22 04:47] VITALS: BP 128/75
[2019-01-22 05:05] LABS: GLUCOMETER DEV NAME(LOC) 5N.1; GLUCOSE,POINT OF CARE 239 MG/DL (70-110)
[2019-01-22] MEDS: INSULIN LISPRO 100 UNITS/ML SQ PRN ×3 (05:42→17:38)
[2019-01-22 06:04] LABS: GLUCOMETER DEV NAME(LOC) 5S.1; GLUCOSE,POINT OF CARE 241 MG/DL (70-110)
[2019-01-22 06:49] LABS: HEMATOCRIT 25.2 % (36-46); HEMOGLOBIN 8.2 g/dL (12.0-16.0); MEAN CORPUSCULAR HEMOGLOBIN 28.5 pg (26.0-34.0); MEAN CORPUSCULAR HGB CONC 32.5 G/dL (31.0-37.0); MEAN CORPUSCULAR VOLUME 88 fL (80-100); PLATELET COUNT (AUTO) 102 K/uL (150-450); RED BLOOD CELL COUNT(AUTO) 2.87 MIL/uL (4.00-5.20); RED CELL DISTRIBUTION WIDTH 18.8 % (11.5-14.5)
[2019-01-22 07:00] LABS: CALCIUM, TOTAL 7.9 mg/dL (8.8-10.5); CREATININE 1.43 mg/dL (0.60-1.30); POTASSIUM 5.1 mmol/L (3.5-5.1)
[2019-01-22 07:12] VITALS: BP 132/78
[2019-01-22 08:00] LABS: BAND NEUTROPHILS % (MANUAL) 3 % (0-5); LYMPHOCYTES % (MANUAL) 12 % (22-44); MONOCYTES % (MANUAL) 5 % (2-9); SEGMENTED NEUTROPHILS % 80 % (40-70)
[2019-01-22 08:48] LABS: GLUCOMETER DEV NAME(LOC) 5N.1; GLUCOSE,POINT OF CARE 235 MG/DL (70-110)
[2019-01-22] MEDS: HEPARIN SODIUM,PORCINE 5,000 UNITS/ML VIAL SQ SCH ×3 (08:55→16:57)
[2019-01-22] MEDS: ACETAMINOPHEN 325 MG TABLET PO PRN (08:55)
[2019-01-22] MEDS: GABAPENTIN 300 MG CAPSULE PO SCH (08:56)
[2019-01-22] MEDS: CHOLECALCIFEROL (VIT D3) 1,000 UNITS TABLET PO SCH (08:56)
[2019-01-22] MEDS: ATAZANAVIR SULFATE 300 MG CAPSULE PO SCH (08:56)
[2019-01-22] MEDS: AmLODIPine BESYLATE 10 MG TABLET PO SCH (08:56)
[2019-01-22] MEDS: LISINOPRIL 20 MG TABLET PO SCH ×2 (08:57→20:58)
[2019-01-22] MEDS: SODIUM CHLORIDE 1 GM TABLET PO SCH ×2 (08:57→20:58)
[2019-01-22] MEDS: DOCUSATE SODIUM 100 MG CAPSULE PO SCH ×2 (08:57→20:58)
[2019-01-22] MEDS: PANTOPRAZOLE SODIUM 40 MG/VIAL IVP SCH (08:57)
[2019-01-22] MEDS: INSULIN GLARGINE,HUM.REC.ANLOG 100 UNITS/ML SQ SCH ×2 (09:00→21:00)
[2019-01-22] MEDS ORDERED: PredniSONE 20 MG TABLET PO SCH (10:30)
[2019-01-22 11:13] VITALS: BP 129/72
[2019-01-22] MEDS: LORazepam 0.5 MG TABLET PO SCH ×2 (11:53→20:58)
[2019-01-22] MEDS: EMTRICITABINE/TENOFOVIR 200-300 MG TABLET PO SCH (11:53)
[2019-01-22] MEDS: RITONAVIR 100 MG TABLET PO SCH ×2 (11:53→16:56)
[2019-01-22 12:11] LABS: GLUCOMETER DEV NAME(LOC) 5S.1; GLUCOSE,POINT OF CARE 192 MG/DL (70-110)
[2019-01-22] MEDS: IPRATROPIUM BROMIDE 0.5 MG/2.5 ML NEB SOLUTION NEB PRN (12:14)
[2019-01-22] MEDS: ALBUTEROL SULFATE 2.5 MG/0.5 ML NEB SOLUTION NEB PRN (12:14)
[2019-01-22 12:54] LABS: GLUCOMETER DEV NAME(LOC) 5S.2; GLUCOSE,POINT OF CARE 256 MG/DL (70-110)
[2019-01-22 15:30] VITALS: BP 121/54
[2019-01-22] MEDS: CefTRIAXone SODIUM 2 GM in DEXTROSE 5%-WATER 50 ML IV SCH (16:57)
[2019-01-22] MEDS: AZITHROMYCIN 500 MG/NS 250 ML IV SCH (17:33)
[2019-01-22 21:03] VITALS: BP 140/79
[2019-01-23] MEDS: ALBUTEROL SULFATE 2.5 MG/0.5 ML NEB SOLUTION NEB SCH ×4 (02:06→20:02)
[2019-01-23] MEDS: IPRATROPIUM BROMIDE 0.5 MG/2.5 ML NEB SOLUTION NEB SCH ×4 (02:06→20:02)
[2019-01-23] MEDS: ZOLPIDEM TARTRATE 5 MG TABLET PO PRN (02:29)
[2019-01-23 02:49] LABS: GLUCOMETER DEV NAME(LOC) 5N.1; GLUCOSE,POINT OF CARE 222 MG/DL (70-110)
[2019-01-23 02:49] LABS: GLUCOMETER DEV NAME(LOC) 5S.1; GLUCOSE,POINT OF CARE 240 MG/DL (70-110)
[2019-01-23 04:22] VITALS: BP 127/64
[2019-01-23 06:07] LABS: INR 1.4 (0.9-1.1); PROTHROMBIN TIME 14.5 SEC (9.4-11.6)
[2019-01-23 07:10] VITALS: BP 148/82
[2019-01-23 07:22] LABS: GLU 6-PHOSPATE DEHYDRO-RBC 2.84 x10E6/uL (3.77-5.28)
[2019-01-23] MEDS: HEPARIN SODIUM,PORCINE 5,000 UNITS/ML VIAL SQ SCH ×3 (08:00→17:07)
[2019-01-23] MEDS: RITONAVIR 100 MG TABLET PO SCH ×2 (08:00→17:43)
[2019-01-23] MEDS: MetroNIDAZOLE 500 MG TABLET PO SCH ×3 (08:00→17:07)
[2019-01-23 08:34] LABS: GLUCOMETER DEV NAME(LOC) 5S.2; GLUCOSE,POINT OF CARE 242 MG/DL (70-110)
[2019-01-23] MEDS: DOCUSATE SODIUM 100 MG CAPSULE PO SCH ×2 (09:00→21:00)
[2019-01-23] MEDS: LISINOPRIL 20 MG TABLET PO SCH ×2 (09:00→20:26)
[2019-01-23] MEDS: CHOLECALCIFEROL (VIT D3) 1,000 UNITS TABLET PO SCH (09:00)
[2019-01-23] MEDS: LORazepam 0.5 MG TABLET PO SCH ×2 (09:00→20:26)
[2019-01-23] MEDS: GABAPENTIN 300 MG CAPSULE PO SCH (09:00)
[2019-01-23] MEDS: EMTRICITABINE/TENOFOVIR 200-300 MG TABLET PO SCH (09:00)
[2019-01-23] MEDS: INSULIN GLARGINE,HUM.REC.ANLOG 100 UNITS/ML SQ SCH ×2 (09:00→20:35)
[2019-01-23] MEDS: ATAZANAVIR SULFATE 300 MG CAPSULE PO SCH (09:00)
[2019-01-23] MEDS: AmLODIPine BESYLATE 10 MG TABLET PO SCH (09:00)
[2019-01-23] MEDS: SODIUM CHLORIDE 1 GM TABLET PO SCH ×2 (09:00→20:26)
[2019-01-23 09:18] LABS: ABG BASE EXCESS -2.2 mmol/L (-2.0-3.0); ABG CARBOXYHEMOGLOBIN 0.6 % (0.0-1.5); ABG HCO3 22.8 mmol/L (22.0-26.0); ABG METHEMOGLOBIN 0.1 % (0.0-1.5); ABG OXYGEN CONTENT 13.8 mL/dL (15.0-23.0); ABG OXYHEMOGLOBIN 94.3 % (94.0-100.0); ABG PCO2 39 mmHg (35-45); ABG PH 7.387 (7.35-7.450); ABG TOTAL HEMOGLOBIN 10.3 G/dL (12.0-18.0); PO2, ARTERIAL BG 79.7 mmHg (84.0-92.0); SOURCE, BLOOD GAS ARTERIAL; TEMPERATURE, FAHRENHEIT, BG 98.6 FAHREN (96.0-98.6)
[2019-01-23 09:19] LABS: O2 DEVICE,BLOOD GAS CANNULA (ROOM AIR); SITE, BLOOD GAS RT RADIAL
[2019-01-23] MEDS: PANTOPRAZOLE SODIUM 40 MG/VIAL IVP SCH (10:48)
[2019-01-23 11:05] VITALS: BP 134/86
[2019-01-23] MEDS ORDERED: SODIUM BICARBONATE 50 MEQ/50 ML VIAL ONE (11:42)
[2019-01-23] MEDS: MethylPREDNISolone SOD SUCC 125 MG/2 ML VIAL IVP SCH ×2 (13:27→17:43)
[2019-01-23] MEDS: INSULIN LISPRO 100 UNITS/ML SQ PRN ×3 (13:30→20:35)
[2019-01-23 16:37] VITALS: BP 116/54
[2019-01-23] MEDS ORDERED: SODIUM CHLORIDE 0.9% 0 ML ONE (16:55)
[2019-01-23 17:00] LABS: GLUCOMETER DEV NAME(LOC) 5N.1; GLUCOSE,POINT OF CARE 147 MG/DL (70-110)
[2019-01-23] MEDS: CefTRIAXone SODIUM 2 GM in DEXTROSE 5%-WATER 50 ML IV SCH (17:07)
[2019-01-23] MEDS: AZITHROMYCIN 500 MG/NS 250 ML IV SCH (17:43)
[2019-01-23 18:48] LABS: SPECIMENTYPE,BODY FLUID THORACENTESIS
[2019-01-23 19:13] LABS: BASOPHILS,BODY FLUID 0 %; EOSINOPHILS,BF (ANAL) 0 %; LYMPHOCYTES,BODY FLUID 70 %; MONOCYTES,BODY FLUID 0 %
[2019-01-23 19:19] LABS: APPEARANCE,SPUN,BODY FLUID CLOUDY (CLEAR); PH, BODY FLUID 7
[2019-01-23 23:17] VITALS: BP 148/85
[2019-01-24] MEDS: MetroNIDAZOLE 500 MG TABLET PO SCH ×4 (00:17→21:15)
[2019-01-24] MEDS: HEPARIN SODIUM,PORCINE 5,000 UNITS/ML VIAL SQ SCH ×4 (00:17→23:57)
[2019-01-24] MEDS: MethylPREDNISolone SOD SUCC 125 MG/2 ML VIAL IVP SCH ×2 (00:17→06:04)
[2019-01-24 00:29] LABS: GLUCOMETER DEV NAME(LOC) 5N.1; GLUCOSE,POINT OF CARE 185 MG/DL (70-110)
[2019-01-24] MEDS: ALBUTEROL SULFATE 2.5 MG/0.5 ML NEB SOLUTION NEB SCH ×5 (02:15→20:12)
[2019-01-24] MEDS: IPRATROPIUM BROMIDE 0.5 MG/2.5 ML NEB SOLUTION NEB SCH ×5 (02:15→20:12)
[2019-01-24 05:09] VITALS: BP 146/74
[2019-01-24] MEDS: INSULIN LISPRO 100 UNITS/ML SQ PRN ×2 (06:05→21:19)
[2019-01-24 07:06] LABS: ALBUMIN 1.2 g/dL (3.4-5.0); BILIRUBIN,TOTAL 0.9 mg/dL (0.1-1.0); CALCIUM, TOTAL 7.8 mg/dL (8.8-10.5); CREATININE 1.39 mg/dL (0.60-1.30); POTASSIUM 5.5 mmol/L (3.5-5.1); TOTAL PROTEIN, SERUM 6.6 g/dL (6.4-8.2)
[2019-01-24 07:16] LABS: HEMATOCRIT 25.9 % (36-46); HEMOGLOBIN 8.3 g/dL (12.0-16.0); MEAN CORPUSCULAR HEMOGLOBIN 28.6 pg (26.0-34.0); MEAN CORPUSCULAR HGB CONC 31.9 G/dL (31.0-37.0); MEAN CORPUSCULAR VOLUME 90 fL (80-100); PLATELET COUNT (AUTO) 86 K/uL (150-450); RED BLOOD CELL COUNT(AUTO) 2.89 MIL/uL (4.00-5.20); RED CELL DISTRIBUTION WIDTH 18.8 % (11.5-14.5)
[2019-01-24 07:24] VITALS: BP 146/80
[2019-01-24 07:33] LABS: BAND NEUTROPHILS % (MANUAL) 0 % (0-5)
[2019-01-24] MEDS: RITONAVIR 100 MG TABLET PO SCH ×2 (08:01→17:48)
[2019-01-24] MEDS: AmLODIPine BESYLATE 10 MG TABLET PO SCH (08:01)
[2019-01-24] MEDS: EMTRICITABINE/TENOFOVIR 200-300 MG TABLET PO SCH (08:01)
[2019-01-24] MEDS: CHOLECALCIFEROL (VIT D3) 1,000 UNITS TABLET PO SCH (08:01)
[2019-01-24] MEDS: LORazepam 0.5 MG TABLET PO SCH ×2 (08:01→21:14)
[2019-01-24] MEDS: DOCUSATE SODIUM 100 MG CAPSULE PO SCH ×2 (08:01→21:14)
[2019-01-24] MEDS: LISINOPRIL 20 MG TABLET PO SCH ×2 (08:01→21:15)
[2019-01-24] MEDS: ATAZANAVIR SULFATE 300 MG CAPSULE PO SCH (08:01)
[2019-01-24] MEDS: GABAPENTIN 300 MG CAPSULE PO SCH (08:01)
[2019-01-24] MEDS: PANTOPRAZOLE SODIUM 40 MG/VIAL IVP SCH (08:02)
[2019-01-24] MEDS: SODIUM CHLORIDE 1 GM TABLET PO SCH ×2 (08:02→21:15)
[2019-01-24] MEDS: INSULIN GLARGINE,HUM.REC.ANLOG 100 UNITS/ML SQ SCH ×2 (08:09→21:17)
[2019-01-24 08:12] LABS: LYMPHOCYTES % (MANUAL) 8 % (22-44); MONOCYTES % (MANUAL) 2 % (2-9); SEGMENTED NEUTROPHILS % 90 % (40-70)
[2019-01-24 08:24] LABS: GLUCOMETER DEV NAME(LOC) 5S.1; GLUCOSE,POINT OF CARE 277 MG/DL (70-110)
[2019-01-24 13:45] LABS: GLUCOMETER DEV NAME(LOC) 5S.2; GLUCOSE,POINT OF CARE 405 MG/DL (70-110)
[2019-01-24 13:45] LABS: GLUCOMETER DEV NAME(LOC) 5S.2; GLUCOSE,POINT OF CARE 384 MG/DL (70-110)
[2019-01-24 15:18] VITALS: BP 129/66
[2019-01-24] MEDS: CefTRIAXone SODIUM 2 GM in DEXTROSE 5%-WATER 50 ML IV SCH (16:00)
[2019-01-24] MEDS: MethylPREDNISolone SOD SUCC 40 MG/ML VIAL IVP SCH ×2 (16:00→23:57)
[2019-01-24] MEDS: AZITHROMYCIN 500 MG/NS 250 ML IV SCH (17:00)
[2019-01-24 19:34] VITALS: BP 145/97
[2019-01-24] MEDS: AMOXICILLIN TRIHYDRATE 500 MG CAPSULE PO SCH (21:15)
[2019-01-24 23:41] VITALS: BP 145/58
[2019-01-25 00:04] LABS: GLUCOMETER DEV NAME(LOC) 5N.1; GLUCOSE,POINT OF CARE 358 MG/DL (70-110)
[2019-01-25] MEDS: IPRATROPIUM BROMIDE 0.5 MG/2.5 ML NEB SOLUTION NEB SCH ×4 (01:56→19:58)
[2019-01-25] MEDS: ALBUTEROL SULFATE 2.5 MG/0.5 ML NEB SOLUTION NEB SCH ×4 (01:56→19:58)
[2019-01-25] MEDS: INSULIN LISPRO 100 UNITS/ML SQ PRN ×4 (05:57→23:37)
[2019-01-25 07:18] VITALS: BP 140/66
[2019-01-25] MEDS: MethylPREDNISolone SOD SUCC 40 MG/ML VIAL IVP SCH ×2 (08:00→16:00)
[2019-01-25] MEDS: PANTOPRAZOLE SODIUM 40 MG/VIAL IVP SCH (08:24)
[2019-01-25] MEDS: CHOLECALCIFEROL (VIT D3) 1,000 UNITS TABLET PO SCH (09:00)
[2019-01-25] MEDS: LORazepam 0.5 MG TABLET PO SCH ×2 (09:00→23:26)
[2019-01-25] MEDS: MetroNIDAZOLE 500 MG TABLET PO SCH ×3 (09:00→23:26)
[2019-01-25] MEDS: SODIUM CHLORIDE 1 GM TABLET PO SCH ×2 (09:00→23:26)
[2019-01-25] MEDS: INSULIN GLARGINE,HUM.REC.ANLOG 100 UNITS/ML SQ SCH ×2 (09:00→23:36)
[2019-01-25] MEDS: AmLODIPine BESYLATE 10 MG TABLET PO SCH (09:00)
[2019-01-25] MEDS: AMOXICILLIN TRIHYDRATE 500 MG CAPSULE PO SCH ×3 (09:00→23:26)
[2019-01-25] MEDS: DOCUSATE SODIUM 100 MG CAPSULE PO SCH ×2 (09:00→23:26)
[2019-01-25] MEDS: GABAPENTIN 300 MG CAPSULE PO SCH (09:00)
[2019-01-25] MEDS: EMTRICITABINE/TENOFOVIR 200-300 MG TABLET PO SCH (09:00)
[2019-01-25] MEDS: ATAZANAVIR SULFATE 300 MG CAPSULE PO SCH (09:00)
[2019-01-25] MEDS: LISINOPRIL 20 MG TABLET PO SCH ×2 (09:00→23:26)
[2019-01-25] MEDS: RITONAVIR 100 MG TABLET PO SCH ×2 (10:00→17:58)
[2019-01-25] MEDS: HEPARIN SODIUM,PORCINE 5,000 UNITS/ML VIAL SQ SCH ×2 (10:01→16:00)
[2019-01-25 11:07] VITALS: BP 153/64
[2019-01-25] MEDS: SPIRONOLACTONE 50 MG TABLET PO SCH (12:13)
[2019-01-25 15:19] VITALS: BP 148/87
[2019-01-25 19:40] VITALS: BP 152/70
[2019-01-26] VITALS (8 sets, daily range): BP systolic 117–149; BP diastolic 65–93
[2019-01-26] MEDS: IPRATROPIUM BROMIDE 0.5 MG/2.5 ML NEB SOLUTION NEB SCH ×4 (01:58→19:43)
[2019-01-26] MEDS: ALBUTEROL SULFATE 2.5 MG/0.5 ML NEB SOLUTION NEB SCH ×4 (01:58→19:43)
[2019-01-26 02:09] LABS: GLUCOMETER DEV NAME(LOC) 5S.2; GLUCOSE,POINT OF CARE 324 MG/DL (70-110)
[2019-01-26 02:10] LABS: GLUCOMETER DEV NAME(LOC) 5S.2; GLUCOSE,POINT OF CARE 381 MG/DL (70-110)
[2019-01-26] MEDS: INSULIN LISPRO 100 UNITS/ML SQ PRN ×4 (05:57→20:28)
[2019-01-26 06:15] LABS: GLUCOMETER DEV NAME(LOC) 5S.1; GLUCOSE,POINT OF CARE 329 MG/DL (70-110)
[2019-01-26 07:11] LABS: BASOPHILS % (AUTO) 0.5 % (0.0-2.0); EOSINOPHILS % (AUTO) 0 % (1.0-6.0); HEMATOCRIT 26.7 % (36-46); HEMOGLOBIN 8.7 g/dL (12.0-16.0); LYMPHOCYTES # (AUTO) 0.7 K/uL (1.0-4.8); LYMPHOCYTES % (AUTO) 10.1 % (22.0-44.0); MEAN CORPUSCULAR HEMOGLOBIN 28.8 pg (26.0-34.0); MEAN CORPUSCULAR HGB CONC 32.6 G/dL (31.0-37.0); MEAN CORPUSCULAR VOLUME 88 fL (80-100); MONOCYTES # (AUTO) 0.6 K/uL (0.1-1.0); NEUTROPHILS # (AUTO) 5.2 K/uL (1.8-7.7); NEUTROPHILS % (AUTO) 80.4 % (40.0-70.0); PLATELET COUNT (AUTO) 95 K/uL (150-450); RED BLOOD CELL COUNT(AUTO) 3.03 MIL/uL (4.00-5.20); RED CELL DISTRIBUTION WIDTH 19.2 % (11.5-14.5)
[2019-01-26 07:29] LABS: ALBUMIN 1.3 g/dL (3.4-5.0); BILIRUBIN,TOTAL 0.9 mg/dL (0.1-1.0); CALCIUM, TOTAL 8.1 mg/dL (8.8-10.5); CREATININE 1.14 mg/dL (0.60-1.30); POTASSIUM 5.1 mmol/L (3.5-5.1); TOTAL PROTEIN, SERUM 6.7 g/dL (6.4-8.2)
[2019-01-26] MEDS: MethylPREDNISolone SOD SUCC 40 MG/ML VIAL IVP SCH ×2 (08:00)
[2019-01-26] MEDS: PANTOPRAZOLE SODIUM 40 MG/VIAL IVP SCH (09:00)
[2019-01-26] MEDS: HEPARIN SODIUM,PORCINE 5,000 UNITS/ML VIAL SQ SCH ×4 (09:51→23:31)
[2019-01-26] MEDS: GABAPENTIN 300 MG CAPSULE PO SCH (09:52)
[2019-01-26] MEDS: AmLODIPine BESYLATE 10 MG TABLET PO SCH (09:52)
[2019-01-26] MEDS: SODIUM CHLORIDE 1 GM TABLET PO SCH ×2 (09:52→20:19)
[2019-01-26] MEDS: RITONAVIR 100 MG TABLET PO SCH ×2 (09:52→17:44)
[2019-01-26] MEDS: LORazepam 0.5 MG TABLET PO SCH ×2 (09:52→20:19)
[2019-01-26] MEDS: DOCUSATE SODIUM 100 MG CAPSULE PO SCH ×2 (09:52→20:19)
[2019-01-26] MEDS: MetroNIDAZOLE 500 MG TABLET PO SCH ×3 (09:52→20:19)
[2019-01-26] MEDS: CHOLECALCIFEROL (VIT D3) 1,000 UNITS TABLET PO SCH (09:52)
[2019-01-26] MEDS: SPIRONOLACTONE 50 MG TABLET PO SCH (09:53)
[2019-01-26] MEDS: ATAZANAVIR SULFATE 300 MG CAPSULE PO SCH (09:53)
[2019-01-26] MEDS: EMTRICITABINE/TENOFOVIR 200-300 MG TABLET PO SCH (09:53)
[2019-01-26] MEDS: AMOXICILLIN TRIHYDRATE 500 MG CAPSULE PO SCH ×3 (09:53→20:19)
[2019-01-26] MEDS: LISINOPRIL 20 MG TABLET PO SCH ×2 (09:53→20:19)
[2019-01-26] MEDS: INSULIN GLARGINE,HUM.REC.ANLOG 100 UNITS/ML SQ SCH ×2 (09:57→20:28)
[2019-01-26] MEDS: IPRATROPIUM BROMIDE 0.5 MG/2.5 ML NEB SOLUTION NEB PRN (11:53)
[2019-01-26] MEDS: ALBUTEROL SULFATE 2.5 MG/0.5 ML NEB SOLUTION NEB PRN (11:53)
[2019-01-26 13:46] LABS: COLOR,BODY FLUID LT YELLOW (LT YELLOW); TOTAL VOLUME,BODY FLUID 2060 mL; WBC, BODY FLUID 9 /cu. mm.
[2019-01-26 13:47] LABS: NEUTROPHILS,BODY FLUID 10 %
[2019-01-26 13:48] LABS: APPEARANCE,UNSPUN,BODY FLUID CLOUDY (CLEAR); OTHER CELLS,BODY FLUID MESOTHELIALS
[2019-01-26] MEDS: PredniSONE 20 MG TABLET PO SCH (14:09)
[2019-01-26 18:10] LABS: GLUCOMETER DEV NAME(LOC) 5S.1; GLUCOSE,POINT OF CARE 285 MG/DL (70-110)
[2019-01-26 21:44] LABS: GLUCOMETER DEV NAME(LOC) 5S.2; GLUCOSE,POINT OF CARE 247 MG/DL (70-110)
[2019-01-26 21:44] LABS: GLUCOMETER DEV NAME(LOC) 5S.2; GLUCOSE,POINT OF CARE 295 MG/DL (70-110)
[2019-01-26 21:44] LABS: GLUCOMETER DEV NAME(LOC) 5S.2; GLUCOSE,POINT OF CARE 263 MG/DL (70-110)
[2019-01-27] MEDS: ALBUTEROL SULFATE 2.5 MG/0.5 ML NEB SOLUTION NEB SCH ×3 (02:44→14:00)
[2019-01-27] MEDS: IPRATROPIUM BROMIDE 0.5 MG/2.5 ML NEB SOLUTION NEB SCH ×3 (02:44→14:00)
[2019-01-27 04:51] VITALS: BP 127/76
[2019-01-27] MEDS: INSULIN LISPRO 100 UNITS/ML SQ PRN ×2 (06:29→12:10)
[2019-01-27 07:01] VITALS: BP 124/68
[2019-01-27 07:49] LABS: GLUCOMETER DEV NAME(LOC) 5S.1; GLUCOSE,POINT OF CARE 348 MG/DL (70-110)
[2019-01-27] MEDS: AmLODIPine BESYLATE 10 MG TABLET PO SCH (07:52)
[2019-01-27] MEDS: PANTOPRAZOLE SODIUM 40 MG/VIAL IVP SCH ×2 (07:52→08:02)
[2019-01-27] MEDS: LISINOPRIL 20 MG TABLET PO SCH (07:53)
[2019-01-27] MEDS: DOCUSATE SODIUM 100 MG CAPSULE PO SCH (07:53)
[2019-01-27] MEDS: GABAPENTIN 300 MG CAPSULE PO SCH (07:53)
[2019-01-27] MEDS: PredniSONE 20 MG TABLET PO SCH (07:53)
[2019-01-27] MEDS: CHOLECALCIFEROL (VIT D3) 1,000 UNITS TABLET PO SCH (07:53)
[2019-01-27] MEDS: LORazepam 0.5 MG TABLET PO SCH (07:53)
[2019-01-27] MEDS: MetroNIDAZOLE 500 MG TABLET PO SCH ×2 (07:53→16:51)
[2019-01-27] MEDS: SODIUM CHLORIDE 1 GM TABLET PO SCH (07:53)
[2019-01-27] MEDS: AMOXICILLIN TRIHYDRATE 500 MG CAPSULE PO SCH ×2 (07:54→16:51)
[2019-01-27] MEDS: HEPARIN SODIUM,PORCINE 5,000 UNITS/ML VIAL SQ SCH ×2 (07:54→16:51)
[2019-01-27] MEDS: RITONAVIR 100 MG TABLET PO SCH (07:54)
[2019-01-27] MEDS: SPIRONOLACTONE 50 MG TABLET PO SCH (07:54)
[2019-01-27] MEDS: ATAZANAVIR SULFATE 300 MG CAPSULE PO SCH (07:55)
[2019-01-27] MEDS: EMTRICITABINE/TENOFOVIR 200-300 MG TABLET PO SCH (07:55)
[2019-01-27] MEDS: INSULIN GLARGINE,HUM.REC.ANLOG 100 UNITS/ML SQ SCH (08:14)
[2019-01-27 09:15] LABS: GLUCOMETER DEV NAME(LOC) 5S.2; GLUCOSE,POINT OF CARE 312 MG/DL (70-110)
[2019-01-27] MEDS: ALBUTEROL SULFATE 2.5 MG/0.5 ML NEB SOLUTION NEB PRN (10:19)
[2019-01-27] MEDS: IPRATROPIUM BROMIDE 0.5 MG/2.5 ML NEB SOLUTION NEB PRN (10:19)
[2019-01-27 12:20] VITALS: BP 122/64
[2019-01-27 16:00] VITALS: BP 147/87
[2019-01-27 23:59] LABS: GLUCOMETER DEV NAME(LOC) 5S.2; GLUCOSE,POINT OF CARE 215 MG/DL (70-110)
== END 2019-01-27 17:35 | DRG 890 ==
LOC: EMS 02:36 → 5S 04:49
PROVIDERS: ADMIT Internal Medicine; ATTEND Internal Medicine
PROC: 0W993ZZ Drainage of Right Pleural Cavity, Percutaneous Approach (ICD-10-PCS; principal; 2019-01-19)
PROC: 5A09357 Assistance with Respiratory Ventilation, Less than 24 Consecutive Hours, Continuous Positive Airway Pressure (ICD-10-PCS; 2019-01-22)
PROC: 0W993ZZ Drainage of Right Pleural Cavity, Percutaneous Approach (ICD-10-PCS; 2019-01-23)
DX: B20 Human immunodeficiency virus [HIV] disease (principal); J94.8 Other specified pleural conditions; N17.9 Acute kidney failure, unspecified; J91.8 Pleural effusion in other conditions classified elsewhere; E44.0 Moderate protein-calorie malnutrition; C22.0 Liver cell carcinoma; R78.81 Bacteremia; J18.9 Pneumonia, unspecified organism; K74.60 Unspecified cirrhosis of liver; I11.0 Hypertensive heart disease with heart failure; J44.0 Chronic obstructive pulmonary disease with (acute) lower respiratory infection; D69.6 Thrombocytopenia, unspecified; E87.1 Hypo-osmolality and hyponatremia; J45.901 Unspecified asthma with (acute) exacerbation; I50.9 Heart failure, unspecified; E87.5 Hyperkalemia; R09.02 Hypoxemia; R06.1 Stridor; E87.2 Acidosis; B19.20 Unspecified viral hepatitis C without hepatic coma; D63.8 Anemia in other chronic diseases classified elsewhere; E66.2 Morbid (severe) obesity with alveolar hypoventilation; J44.1 Chronic obstructive pulmonary disease with (acute) exacerbation; E11.65 Type 2 diabetes mellitus with hyperglycemia; Z91.14 Patient's other noncompliance with medication regimen; Z68.41 Body mass index [BMI] 40.0-44.9, adult; Z91.048 Other nonmedicinal substance allergy status; Z59.0 Homelessness; Z91.19 Patient's noncompliance with other medical treatment and regimen; Z91.018 Allergy to other foods; Z79.4 Long term (current) use of insulin
CPT/HCPCS: 32555; 36600; 71275; 76942; 82465; 82805; 82945; 82955; 83615; 83986; 84145; 84157; 84311; 85041; 86361; 86701; 86702; 86777; 86778; 87015; 87040; 87070; 87081; 87086; 87101; 87205; 87206; 87389; 88108; 89051; 93005; 93306; 94640; 94660; 97116; 97162; 97530; C9113; G0378; J0456; J0696; J1644; J1815; J2930; J3490; J7050; J7060